=== PATIENT | male | born 1980 | race African-American/Black ===

== ENCOUNTER 2021-05-19 15:16 | Emergency (ER) | payer OTHER ==
[2021-05-19] MEDS ORDERED: Ketorolac Tromethamine 30 MG/ML VIAL ONE (16:02)
== END 2021-05-19 16:16 | disposition home or self-care (01) ==
LOC: CSHERS 15:16
DX: S39.012A Strain of muscle, fascia and tendon of lower back, initial encounter (principal); X50.0XXA Overexertion from strenuous movement or load, initial encounter; F17.210 Nicotine dependence, cigarettes, uncomplicated
CPT/HCPCS: 96372; 99283; J1885